=== PATIENT | female | born 1980 | race Caucasian/White ===

== ENCOUNTER → 2017-09-28 | Outpatient (CLI) | payer OTHER ==
[~2017-09-28] MED LIST: ACET-789 PO; ACHD5005 PO; ACHYD1T PO; AMOX-355 PO; BENZ56AE TP; FRS325T PO; HYDR-34 PO; HYDR-3583 PO; IBP600T1 PO; NAPR550T PO; PREN1TAB64; WTCHGPD TOP; [UNRECOGNIZED DRUG - OTHER] PO
--- NOTE | 2017-09-28 09:21 | Diagnostic Imaging Report ---
INDICATION: Left breast tenderness. COMPARISON: Correlation is made with the diagnostic mammogram from earlier this same day. FINDINGS: Sonographic interrogation of the left breast in all four quadrants and retroareolar regions was performed. No sonographic abnormality is seen. No solid or cystic mass is detected. IMPRESSION: No sonographic abnormality is seen. Continued clinical followup is recommended. ACR BI-RADS Category 1: Negative. Dictated by: Dictated on workstation # [id number]
--- NOTE | 2017-09-28 09:23 | Diagnostic Imaging Report ---
INDICATION: Left breast pain. COMPARISON: 03/02/2016. TECHNIQUE: Unilateral left 2D and 3D diagnostic mammography was performed with CAD. FINDINGS: The left breast is heterogeneously dense, limiting the sensitivity of mammography. The parenchymal pattern is stable. No mass is identified. No malignant appearing microcalcifications are seen. The left axilla is unremarkable. IMPRESSION: No mammographic features suspicious for malignancy are identified. Even so, a left breast ultrasound is recommended for further evaluation. ACR BI-RADS Category 0: Incomplete. (Needs additional imaging evaluation). Result letter will be mailed to the patient. Note: At least 10% of breast cancer is not imaged by mammography. Dictated by: Dictated on workstation # [id number]
== END ==
LOC: RAD 07:50
PROVIDERS: ATTEND Family Medicine
DX: N64.4 Mastodynia (principal)
CPT/HCPCS: 76641